=== PATIENT | female | born 1950 | race Caucasian/White ===

== ENCOUNTER 2020-09-09 08:56 | Emergency (ER) | payer MEDICARE ==
[2020-09-09 09:51] LABS: BASOPHIL 0.1 % (0-2); EOSINOPHIL 0.1 % (0-7); HCT 51.2 % (37.0-47.0); HGB 18.2 g/dl (12.5-16.0); LYMPHOCYTE 16.4 % (15-48); MCH 31.7 pg (25.0-31.0); MCHC 35.5 g/dL (32.0-36.0); MONOCYTE 8.8 % (0-12); MPV 11.6 fL (6.0-9.5); NEUTROPHIL 74.1 % (41-80); NRBC 0; PLT 288 K/uL (150-400); RBC 5.75 M/uL (4.20-5.40); RDW 12.3 % (11.5-14.0); WBC 15.4 K/uL (4.0-10.5)
[2020-09-09 10:04] LABS: ALBUMIN 4.4 g/dL (3.4-5.0); BILIRUBIN - TOTAL 1.8 mg/dL (0.2-1.0); BUN/CREAT RATIO (CALC) 25.6 RATIO; CREATININE 0.9 mg/dL (0.51-0.95); GLOBULIN (CALCULATION) 4.4 g/dL; POTASSIUM 3.6 mmol/L (3.5-5.1); TOTAL PROTEIN 8.8 g/dL (6.4-8.2)
[2020-09-09 10:25] LABS: BILIRUBIN 2+ mg/dL (NEGATIVE); BLOOD 2+ Ery/uL (NEGATIVE); GLUCOSE (U) NORMAL (NORMAL); LEUKOCYTES NEGATIVE Leu/uL (NEGATIVE); NITRITE POSITIVE (NEGATIVE); PROTEIN 3+ mg/dL (NEGATIVE); SPECIFIC GRAVITY >=1.030 (1.001-1.030)
[2020-09-09 10:34] LABS: CLARITY HAZY (CLEAR); COLOR AMBER (YELLOW)
[2020-09-09 10:37] LABS: BACTERIA 1+; MUCOUS MODERATE
== END 2020-09-09 14:49 | disposition other institution (70) ==
LOC: FER 08:56
PROVIDERS: Emergency Medicine
DX: I21.4 Non-ST elevation (NSTEMI) myocardial infarction (principal); E86.0 Dehydration
CPT/HCPCS: 36415; 80053; 81001; 84145; 84484; 85025; 87088; 93005; J0696; J1170; J2765; J7030